=== PATIENT | female | born 1960 | race Caucasian/White ===

== ENCOUNTER 2018-11-10 13:32 | Inpatient (IN) | payer SELFPAY ==
[~2018-11-10] VITALS: Ht 167.6 cm; Wt 94.5 kg
[2018-11-10 15:51] VITALS: BP 162/74
[2018-11-10] MEDS ORDERED: HEPARIN 25,000UTS/500ML PREMIX 500 ML IV PRN ×2 (16:15)
[2018-11-10] MEDS ORDERED: HEPARIN for IV BOLUS 10,000 UNIT/10 ML VIAL. IV PRN (16:15)
--- NOTE | 2018-11-10 16:27 | PDOC ---
Provider Note Provider Note 11/10/2018 1610 AFIB RVR NSTEMI Cardiomyopathy Pneumonia Pt transferred from [facility] with EF at 35-40%. [facility] planned for tomorrow. Pt was seen by cardiology over there, please see attached note copies including consultation. DC cardizem and start on metoprolol for rate control. Start on heparin drip and will reeval need of anticoagulation post cath after findings in LHC is noted. BEA SALAZAR APRN Nov 10, 2018 16:27
[2018-11-10] MEDS: METOPROLOL TART IMMED RELEASE 25 MG TABLET. PO SCH (17:39)
[2018-11-10] MEDS ORDERED: RANI-376 PO (17:56)
[2018-11-10] MEDS ORDERED: ACETAMINOPHEN 325 MG TABLET. PO PRN (18:15)
[2018-11-10] MEDS: IPRATRPIUM/ALBUTEROL 0.5/2.5MG 3 ML NEBU. NEB SCH (19:25)
[2018-11-10 19:30] VITALS: BP 100/71
[2018-11-10] MEDS: LACTOBACILLUS RHAMNOSUS GG 1 CAPSULE. PO SCH (20:17)
[2018-11-10] MEDS ORDERED: cefTRIAXone IV Push 1 GM VIAL. IVP SCH (21:00)
[2018-11-10 23:37] VITALS: BP 116/81
[2018-11-11] VITALS (14 sets, daily range): BP systolic 96–121; BP diastolic 55–81
[2018-11-11] MEDS: METOPROLOL TART IMMED RELEASE 25 MG TABLET. PO SCH ×3 (00:23→12:15)
[2018-11-11 06:24] LABS: BASO # 0.1 x10^3/uL (0.0-0.2); BASO % 1 % (0-3); EOS # 0.1 x10^3/uL (0.0-0.7); EOS % 1 % (0-3); HEMATOCRIT 35.7 % (36.0-47.0); HEMOGLOBIN 11.6 g/dL (12.0-15.5); LYMPH # 1.8 x10^3/uL (1.0-4.8); LYMPH % 17 % (24-48); MEAN CORPUSCULAR HEMOGLOBIN 30 pg (25-35); MEAN CORPUSCULAR HGB CONC 33 g/dL (31-37); MEAN CORPUSCULAR VOLUME 92 fL (79-100); MONO # 0.8 x10^3/uL (0.0-1.1); MONO % 8 % (0-9); NEUT # 7.9 x10^3uL (1.8-7.7); NEUT % 74 % (31-73); PLATELET COUNT 303 x10^3/uL (140-400); RED BLOOD COUNT 3.86 x10^6/uL (3.50-5.40); RED CELL DISTRIBUTION WIDTH 13.8 % (11.5-14.5); WHITE BLOOD COUNT 10.7 x10^3/uL (4.0-11.0)
[2018-11-11 06:46] LABS: ALBUMIN 2.7 g/dL (3.4-5.0); ALBUMIN/GLOBULIN RATIO 0.8 (1.0-1.7); CALCIUM 8.9 mg/dL (8.5-10.1); GFR 56.9; MAGNESIUM 1.9 mg/dL (1.8-2.4); POTASSIUM 3.9 mmol/L (3.5-5.1); TOTAL BILIRUBIN 0.6 mg/dL (0.2-1.0); TOTAL PROTEIN 6.3 g/dL (6.4-8.2)
[2018-11-11] MEDS ORDERED: ASPIRIN 325 MG TABLET PO SCH (08:00)
[2018-11-11] MEDS: IPRATRPIUM/ALBUTEROL 0.5/2.5MG 3 ML NEBU. NEB SCH ×3 (08:12→16:00)
[2018-11-11] MEDS ORDERED: LIDOCAINE 1% Multi-Dose 20 ML VIAL. ONE (08:14)
[2018-11-11] MEDS ORDERED: HEPARIN for ARTERIAL LINE 1,500 ML ONE (08:14)
[2018-11-11] MEDS ORDERED: IOHEXOL 300 MG/ML 100ML VIAL. ONE (08:14)
[2018-11-11] MEDS ORDERED: fentaNYL PF VIAL 100 MCG/2 ML VIAL ONE (08:38)
[2018-11-11] MEDS ORDERED: MIDAZOLAM HCL/PF 2 MG/2 ML VIAL. ONE (08:38)
--- NOTE | 2018-11-11 08:48 | PDOC ---
MODERATE SEDATION ASSESSMENT RISKS/ALTERNATIVES Risks/Alternatives Risks and alternatives of this type of sedation and procedure discussed with: RISK/ALTERNATIVES: Patient H & P ON CHART H & P H & P on chart and reviewed for co-morbid conditions and appropriate labs. H&P ON CHART: Yes STATUS PREG STATUS ASSESSED: Yes MEDS/ALLERGIES REVIEWED Meds/Allergies Reviewed Medications and Allergies including time and route of recently administered narcotics and sedatives. MEDS/ALLERGIES REVIEWED: Yes ASA RATING ASA RATING: II AIRWAY ASSESSMENT Airway Assessment Airway patency, oral function limitations, presence of caps, crowns, dentures, partials, and ability to extend neck assessed. AIRWAY ASSESSMENT: Yes MALLAMPATI SCORE MALLAMPATI SCORE: II PRE-SEDATION ASSESSMENT PRE-SEDATION ASSESSMENT: Yes DANIAL BELTRAN MD Nov 11, 2018 08:48
[2018-11-11] MEDS ORDERED: IOHEXOL 300 MG/ML 100ML VIAL. IART ONE (09:15)
[2018-11-11] MEDS ORDERED: LIDOCAINE 1% Multi-Dose 20 ML VIAL. INJ ONE (09:15)
[2018-11-11] MEDS ORDERED: fentaNYL PF VIAL 100 MCG/2 ML VIAL IV ONE (09:15)
[2018-11-11] MEDS ORDERED: MIDAZOLAM HCL/PF 2 MG/2 ML VIAL. IV ONE (09:15)
[2018-11-11] MEDS ORDERED: CONTRAST GIVEN. MC PRN (09:15)
[2018-11-11] MEDS ORDERED: 0.9 % SODIUM CHLORIDE 10 ML DISP.SYRIN. IV PRN (09:45)
[2018-11-11] MEDS ORDERED: NITROGLYCERIN SUBLINGUAL 0.4 MG BOTTLE OF 25. SL PRN (09:45)
[2018-11-11] MEDS ORDERED: IV NORMAL SALINE 1000ML BAG 1,000 ML IV SCH (10:00)
[2018-11-11] MEDS: LACTOBACILLUS RHAMNOSUS GG 1 CAPSULE. PO SCH (10:31)
[2018-11-11] MEDS ORDERED: LISINOPRIL 10 MG TABLET PO SCH (13:30)
[2018-11-11] MEDS ORDERED: METOPROLOL SUCC 24HR ER 50 MG TAB.ER.24H. PO SCH (13:30)
--- NOTE | 2018-11-11 14:19 | SSS ---
ADMIT DATE: HISTORY OF PRESENT ILLNESS: The patient is a 58-year-old female patient who was admitted with increasing shortness of breath, cough and has been going on for almost 2 weeks. She apparently was seen by her primary care physician, was treated for bronchitis with oral Levaquin, albuterol inhaler as well as Mucinex. She also has completed treatment several days ago. She continued to have shortness of breath with any exertion, even when she walks across the room and she became short of breath. Denied, however, any chest pain. She has not noted to have a rapid heart rate and has no cardiac history. She was seen in the Emergency Room of [facility] on 11/09/2018 and was diagnosed with the atrial fibrillation, rapid ventricular response with a heart rate 153 beats per minute that is irregular without ST segment elevation. Her chest x-ray showed that the heart is borderline enlarged. She has atherosclerotic calcification, some right infrahilar parenchymal airspace opacity suspicious for developing consolidative process. She has pneumonia and a trace right-sided pleural effusion, but no pneumothorax. Cardiac enzyme was slightly elevated. She had an echocardiogram, which showed that her left ventricular size is normal; however, left ventricular systolic function is moderately impaired, ejection fraction 35-40%. She has global hypokinesis and with concentric left ventricular hypertrophy with no significant valvular disease. Her pulmonary artery pressure was estimated at 54 mm and the ascending aorta is mildly dilated 3.6 cm, and therefore, a decision was made to transfer her to [facility] for cardiac catheterization. In fact, she underwent left heart catheterization and showed that she has no significant obstructive coronary artery disease, and Dr. Jonas Gibson recommended the patient can be discharged on a beta edinson, ESTEFANY inhibitor and blood thinner. PAST MEDICAL HISTORY: Significant for nephrolithiasis, had 3 stones that were removed by cystoscopy and retrograde pyelography and laser lithotripsy. PAST SURGICAL HISTORY: Significant for 3 sections and recent cystoscopy and retrograde pyelography. ALLERGIES: She has no known drug allergies. She was transferred to [facility]. She was on diltiazem 240 mg once a day, ceftriaxone 1 gram as well as she was also on heparin drip. FAMILY HISTORY: She has 4 sisters and 2 brothers. Her mother is still alive at the age of 81 and has diabetes, CVA and coronary artery bypass graft surgery. His father is still alive at age of 86 and apparently has a history of meningitis and currently demented. One of her sisters has diabetes. SOCIAL HISTORY: She is , has 2 sons and 1 daughter. She quit smoking about 5 years ago. She does not drink alcohol or use recreational drugs. 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 PHYSICAL EXAMINATION: GENERAL: When I examined her this afternoon, she looked well and was clearly in no apparent respiratory distress. No pallor, jaundice, cyanosis or thyromegaly. No jugular venous distension. No lower limb edema. VITAL SIGNS: Her heart rate was 100, blood pressure was 108/64, temperature was 98, respiratory rate was 18 and oxygen saturation was 96% on room air. HEAD, EYES, EARS, NOSE AND THROAT: Showed normocephalic, atraumatic. NECK: Supple. HEART: Showed normal first and second heart sounds with no gallop, rub or murmur. CHEST: Clear to auscultation. No crepitation or rhonchi. ABDOMEN: Distended, soft, nontender. NEUROLOGIC: She was awake, alert, responding appropriately. All cranial nerves intact. She moves extremities without difficulty. Her lab work showed a white cell count 10,700, hemoglobin 11, hematocrit 36, MCV 92, and platelet count 303,000, with normal manual differential. Her serum sodium was 143, potassium 3.9, chloride 106, bicarbonate 25, anion gap of 12, BUN is 17, creatinine 1, estimated GFR was 56 mL per minute. Her glucose 123, calcium was 8.9, magnesium was 1.9. Total bilirubin, AST, ALT, alkaline phosphatase were normal. Total protein was 6.3, albumin 2.7. The patient will be discharged home to continue on metoprolol, ESTEFANY inhibitor and blood thinner dictated by the cardiology team. The patient was advised she may return back to work on 11/23/2018. KEL KIMBROUGH MD DR: JODIE/marnie JOB#: [id number] / [id number]
--- NOTE | 2018-11-11 15:36 | PDOC ---
CARDIO Progress Notes Date and Time Date of Service 11/11/18 Time of Evaluation 1210 Subjective Subjective: No Chest Pain, No shortness of breath, No Palpitations Vitals Vitals Vital Signs Date Time Temp Pulse Resp B/P (MAP) Pulse Ox O2 Delivery O2 Flow Rate FiO2 11/11/18 15:20 97.8 70 28 97/67 (77) 92 Room Air 97.8 11/11/18 14:00 1.0 Weight Weight [ ] Input and Output Intake and Output Intake and Output 11/11/18 07:00 Intake Total 500 ml Balance 500 ml Intake Oral 500 ml # Voids 3 Laboratory Labs Laboratory Tests Test 11/10/18 22:45 11/11/18 05:55 Heparin Anti-Xa Act, Unfractionated < 0.10 IU/mL (0.30-0.70) 0.33 IU/mL (0.30-0.70) White Blood Count 10.7 x10^3/uL (4.0-11.0) Red Blood Count 3.86 x10^6/uL (3.50-5.40) Hemoglobin 11.6 g/dL (12.0-15.5) Hematocrit 35.7 % (36.0-47.0) Mean Corpuscular Volume 92 fL (79-100) Mean Corpuscular Hemoglobin 30 pg (25-35) Mean Corpuscular Hemoglobin Concent 33 g/dL (31-37) Red Cell Distribution Width 13.8 % (11.5-14.5) Platelet Count 303 x10^3/uL (140-400) Neutrophils (%) (Auto) 74 % (31-73) Lymphocytes (%) (Auto) 17 % (24-48) Monocytes (%) (Auto) 8 % (0-9) Eosinophils (%) (Auto) 1 % (0-3) Basophils (%) (Auto) 1 % (0-3) Neutrophils # (Auto) 7.9 x10^3uL (1.8-7.7) Lymphocytes # (Auto) 1.8 x10^3/uL (1.0-4.8) Monocytes # (Auto) 0.8 x10^3/uL (0.0-1.1) Eosinophils # (Auto) 0.1 x10^3/uL (0.0-0.7) Basophils # (Auto) 0.1 x10^3/uL (0.0-0.2) Sodium Level 143 mmol/L (136-145) Potassium Level 3.9 mmol/L (3.5-5.1) Chloride Level 106 mmol/L (98-107) Carbon Dioxide Level 25 mmol/L (21-32) Anion Gap 12 (6-14) Blood Urea Nitrogen 17 mg/dL (7-20) Creatinine 1.0 mg/dL (0.6-1.0) Estimated GFR (Cockcroft-Gault) 56.9 BUN/Creatinine Ratio 17 (6-20) Glucose Level 123 mg/dL (70-99) Calcium Level 8.9 mg/dL (8.5-10.1) Magnesium Level 1.9 mg/dL (1.8-2.4) Total Bilirubin 0.6 mg/dL (0.2-1.0) Aspartate Amino Transf (AST/SGOT) 29 U/L (15-37) Alanine Aminotransferase (ALT/SGPT) 35 U/L (14-59) Alkaline Phosphatase 91 U/L (46-116) Total Protein 6.3 g/dL (6.4-8.2) Albumin 2.7 g/dL (3.4-5.0) Albumin/Globulin Ratio 0.8 (1.0-1.7) Physical Exam HEENT: Neck Supple W Full Motion Chest: Symmetric Heart: S1S2, irregularly irregular Abdomen: Soft N/T Extremities: No Edema, Other (right groin arteriotomy site soft, clean and dry. No hematoma present) Assessment Assessment 1. AFIB, new onset. rate now controlled. 2. NICM; LVEF 35- 40%. Cath without obstructive disease 3. PNA; as per PCP Recommendations Stop Cardizem given NICM. Rate control with metoprolol- will do tartrate for affordability Add low-dose ACEi Eliquis for stroke prophylaxis. 6 weeks of samples provided to the patient SS provided information for insurance coverage Consider outpatient CV if patient remains in AFIB Reassess LVEF on an outpatient basis Follow up in our office with Dr. Ortiz in month. RAZA BIRMINGHAM APRN Nov 11, 2018 15:36
--- NOTE | 2018-11-11 15:37 | CARD ---
MR#: [id number] Date of Study: 11/11/2018 Ordering Physician: BEA SALAZAR, Referring Physician: Pollo ASHLEY: LETICIA DE SOUZA RTR APPROVED REPORT Procedures Left heart catheterization Selective coronary angiogram Left ventriculogram The patient's a 58-year-old female with new onset of heart failure. Echocardiogram showed moderately decreased LV function. Patient had mildly atypical chest pain. In this situation cardiac catheterizat ion was recommended. Risks and benefits were discussed with the patient. The patient agreed to procee d. After informed consent was obtained the patient was brought to the heart catheterization lab. The are a of the right femoral artery was prepared the usual manner with Betadine, sterile draping and local anesthetic. An 18-gauge needle was used to enter the right femoral artery, a wire placed the 6 Tamazight sheath placed over the wire. Using a J-wire, a 6 Tamazight JL4 diagnostic catheter was advanced to the ascending aorta and used to engage the left coronary system with sequential injections in various vi ews obtained. A 6 Tamazight JR4 catheter with then used to engage the right coronary artery system. Sequ ential injections in various views were obtained. A pigtail catheter was advanced to the ascending ao rta and then the left ventricle. A 30 ARIZMENDI left ventriculogram was performed. Pullback pressures were measured. The catheter was removed the patient. Injection the sheath showed normal placement. The eath was removed and sealed with an Angio-Seal product. The patient was moved to the holding area. Findings. Hemodynamics. LV 106/15, 18. Aortic root 104/80. Coronaries. Left main. The left main was a moderate size vessel. It had a smooth proximal 20-25% lesion. Left circumflex. The left circumflex is a moderate size vessel. It had no lesions. Right coronary artery. The right coronary was a large dominant vessel. It had no lesions. Left ventriculogram. The left ventricle showed moderately decreased LV function na a global basis with ejection fraction e stimated at 35%. <Conclusion> Mild single-vessel coronary disease. Nonischemic cardiomyopathy with an ejection fraction of 35%. Signed by : Waqas Jung MD Electronically Approved : 11/11/2018 15:37:00
[2018-11-11] MEDS ORDERED: METO50TA6 PO (15:45)
[2018-11-11] MEDS ORDERED: LISI10TA2 PO (15:45)
[2018-11-11] MEDS ORDERED: APIX5TAB PO (15:45)
[2018-11-11] MEDS ORDERED: ANTI-COAG MONITOR BY PHARMACY. MC PRN (15:45)
[2018-11-11] MEDS ORDERED: APIXABAN 5 MG TABLET. PO SCH (16:30)
--- NOTE | 2018-11-11 17:55 | NUR ---
Discharge Note: MARIO ALBERTO DUMAS Discharge instructions and discharge home medications reviewed with Patient and a copy given. All questions have been answered and understanding verbalized. The following instructions and handouts were given: Fellow up with Dr. Ortiz in one month. Discontinued iv lines: light discoloration in ac darby and left wrist. Patient discharged to with via
[2018-11-11] MEDS ORDERED: METOPROLOL TART IMMED RELEASE 50 MG TABLET. PO SCH (21:00)
== END 2018-11-11 17:35 | disposition home or self-care (01) | DRG 280 ==
LOC: 2 SOUTH 15:37
PROVIDERS: ADMIT Internal Medicine; ATTEND Internal Medicine
PROC: 4A023N7 Measurement of Cardiac Sampling and Pressure, Left Heart, Percutaneous Approach (ICD-10-PCS; principal; 2018-11-11)
PROC: B2151ZZ Fluoroscopy of Left Heart using Low Osmolar Contrast (ICD-10-PCS; 2018-11-11)
PROC: B2111ZZ Fluoroscopy of Multiple Coronary Arteries using Low Osmolar Contrast (ICD-10-PCS; 2018-11-11)
DX: I21.4 Non-ST elevation (NSTEMI) myocardial infarction (principal); J18.9 Pneumonia, unspecified organism; I42.9 Cardiomyopathy, unspecified; I48.91 Unspecified atrial fibrillation; J40 Bronchitis, not specified as acute or chronic; Z82.3 Family history of stroke; Z83.3 Family history of diabetes mellitus; Z87.442 Personal history of urinary calculi; Z87.891 Personal history of nicotine dependence; Z79.899 Other long term (current) drug therapy
CPT/HCPCS: 36415; 80053; 83735; 85025; 85520; 93458; 94640; 94760; 99152; 99153; C1760; C1769; C1892; G0269; J0696; J1644; J2250; J3010; J7030; J7620; Q9967; C1771

== ENCOUNTER 2018-11-20 17:36 | Inpatient (IN) | payer SELFPAY ==
[~2018-11-20] VITALS: Ht 167.6 cm; Wt 87.2 kg
[~2018-11-20 17:36] MED LIST: APIX5TAB PO; LISI10TA2 PO; METO50TA6 PO; RANI-376 PO
[2018-11-20] MEDS ORDERED: IPRATRPIUM/ALBUTEROL 0.5/2.5MG 3 ML NEBU. NEB ONE (19:30)
[2018-11-20 19:44] LABS: BASO # 0.1 x10^3/uL (0.0-0.2); BASO % 1 % (0-3); EOS # 0.1 x10^3/uL (0.0-0.7); EOS % 1 % (0-3); HEMATOCRIT 40.2 % (36.0-47.0); LYMPH # 2.1 x10^3/uL (1.0-4.8); LYMPH % 30 % (24-48); MEAN CORPUSCULAR HEMOGLOBIN 30 pg (25-35); MEAN CORPUSCULAR HGB CONC 32 g/dL (31-37); MEAN CORPUSCULAR VOLUME 92 fL (79-100); MONO # 0.6 x10^3/uL (0.0-1.1); MONO % 8 % (0-9); NEUT # 4.3 x10^3uL (1.8-7.7); NEUT % 60 % (31-73); PLATELET COUNT 315 x10^3/uL (140-400); RED BLOOD COUNT 4.39 x10^6/uL (3.50-5.40); RED CELL DISTRIBUTION WIDTH 13.8 % (11.5-14.5); WHITE BLOOD COUNT 7.1 x10^3/uL (4.0-11.0)
[2018-11-20 19:57] LABS: CREATININE 0.9 mg/dL (0.6-1.0); GFR 64.3; POTASSIUM 4.5 mmol/L (3.5-5.1)
[2018-11-20 20:03] LABS: ALBUMIN 2.9 g/dL (3.4-5.0); ALBUMIN/GLOBULIN RATIO 0.8 (1.0-1.7); TOTAL BILIRUBIN 0.7 mg/dL (0.2-1.0); TOTAL PROTEIN 6.5 g/dL (6.4-8.2)
--- NOTE | 2018-11-20 21:10 | PHYS DOC ---
Past Medical History Past Medical History: A-Fib, Bronchitis, Hypertension, Kidney Infection, Kidney Stone Past Surgical History: Alcohol Use: Occasionally Drug Use: None Adult General Chief Complaint Chief Complaint: SHORTNESS OF BREATH HPI HPI Patient is a 58 year old female who presents to the emergency room with complaints of shortness of breath for the last month. Patient states she was admitted on November 10 and discharged on November 11 after being diagnosed with pneumonia and atrial fibrillation. She states that time she was also diagnosed with hypertension and bronchitis she was started on eloquence. Patient denies any fever, chest pain, dizziness, weakness, abdominal pain, nausea, vomiting, diarrhea, sore throat, or ear pain. She states that her shortness of breath increases with activity, she denies any swelling in her extremities. Patient currently denies any pain. Review of Systems Review of Systems Constitutional: Denies fever or chills [] Eyes: Denies change in visual acuity, redness, or eye pain [] HENT: Denies nasal congestion or sore throat [] Respiratory: See HPI Cardiovascular: No additional information not addressed in HPI [] GI: Denies abdominal pain, nausea, vomiting, or diarrhea [] : Denies dysuria or hematuria [] Musculoskeletal: Denies back pain or joint pain [] Integument: Denies rash or skin lesions [] Neurologic: Denies headache, focal weakness or sensory changes [] Complete systems were reviewed and found to be within normal limits, except as documented in this note. Current Medications Current Medications Current Medications Medications (Trade) Dose Ordered Sig/Cammy Start Time Stop Time Status Last Admin Dose Admin Albuterol/ Ipratropium (Duoneb) 3 ml 1X ONCE 11/20/18 19:30 11/20/18 19:31 DC 11/20/18 20:15 3 ML Allergies Allergies Allergies Coded Allergies Type Severity Reaction Last Updated Verified No Known Drug Allergies 11/10/18 No Physical Exam Physical Exam Constitutional: Well developed, well nourished, no acute distress, non-toxic appearance. [] HENT: Normocephalic, atraumatic, bilateral external ears normal, oropharynx moist, nose normal. [] Eyes: conjunctiva normal, no discharge. [] Neck: Normal range of motion, no stridor. [] Cardiovascular:Heart rate regular rhythm, no murmur [] Lungs & Thorax: Bilateral breath sounds expiratory wheezes, diminished in bases; labored Skin: Warm, dry, no erythema, no rash. [] Extremities: No cyanosis, ROM intact, no edema, no deformities. Neurologic: Alert and oriented X 3, no focal deficits noted. [] Psychologic: Affect normal, judgement normal, mood normal. [] Current Patient Data Vital Signs Lab Values Laboratory Tests Test 11/20/18 19:20 White Blood Count 7.1 x10^3/uL (4.0-11.0) Red Blood Count 4.39 x10^6/uL (3.50-5.40) Hemoglobin 13.0 g/dL (12.0-15.5) Hematocrit 40.2 % (36.0-47.0) Mean Corpuscular Volume 92 fL (79-100) Mean Corpuscular Hemoglobin 30 pg (25-35) Mean Corpuscular Hemoglobin Concent 32 g/dL (31-37) Red Cell Distribution Width 13.8 % (11.5-14.5) Platelet Count 315 x10^3/uL (140-400) Neutrophils (%) (Auto) 60 % (31-73) Lymphocytes (%) (Auto) 30 % (24-48) Monocytes (%) (Auto) 8 % (0-9) Eosinophils (%) (Auto) 1 % (0-3) Basophils (%) (Auto) 1 % (0-3) Neutrophils # (Auto) 4.3 x10^3uL (1.8-7.7) Lymphocytes # (Auto) 2.1 x10^3/uL (1.0-4.8) Monocytes # (Auto) 0.6 x10^3/uL (0.0-1.1) Eosinophils # (Auto) 0.1 x10^3/uL (0.0-0.7) Basophils # (Auto) 0.1 x10^3/uL (0.0-0.2) D-Dimer (Shelley) 0.49 ug/mlFEU (0.00-0.50) Sodium Level 144 mmol/L (136-145) Potassium Level 4.5 mmol/L (3.5-5.1) Chloride Level 106 mmol/L (98-107) Carbon Dioxide Level 28 mmol/L (21-32) Anion Gap 10 (6-14) Blood Urea Nitrogen 21 mg/dL (7-20) H Creatinine 0.9 mg/dL (0.6-1.0) Estimated GFR (Cockcroft-Gault) 64.3 BUN/Creatinine Ratio 23 (6-20) H Glucose Level 101 mg/dL (70-99) H Calcium Level 9.0 mg/dL (8.5-10.1) Total Bilirubin 0.7 mg/dL (0.2-1.0) Aspartate Amino Transferase (AST) 31 U/L (15-37) Alanine Aminotransferase (ALT) 43 U/L (14-59) Alkaline Phosphatase 88 U/L (46-116) Troponin I Quantitative 0.025 ng/mL (0.000-0.055) GM-Gph-Q-Type Natriuretic Peptide 7527 pg/mL (0-124) H Total Protein 6.5 g/dL (6.4-8.2) Albumin 2.9 g/dL (3.4-5.0) L Albumin/Globulin Ratio 0.8 (1.0-1.7) L Laboratory Tests 11/20/18 19:20 Laboratory Tests 11/20/18 19:20 EKG EKG 1910 afib no stemi rate [address] Fajardo[] Radiology/Procedures Radiology/Procedures PROCEDURE: CHEST PA & LATERAL CHEST PA LATERAL CLINICAL INDICATION: SOA, COUGH X1 MONTH. HX OF BRONCHITIS, A-FIB COMPARISON: None FINDINGS: Heart is mildly enlarged in size. Central bilateral peribronchial wall thickening is seen. Diffuse interstitial opacities. No focal consolidation. No pneumothorax or pleural effusion. Visualized bony thorax is within normal limits. IMPRESSION: Mild cardiomegaly. Bronchitis. Superimposed atypical/viral infection or interstitial pulmonary edema not ruled out.[] Course & Med Decision Making Course & Med Decision Making Pertinent Labs and Imaging studies reviewed. (See chart for details) dx: shortness of breath, atrial fibrillation, CHF exacerbation 2051- admitted patient to Dr. Richardson [] Dragon Disclaimer Dragon Disclaimer This electronic medical record was generated, in whole or in part, using a voice recognition dictation system. Departure Departure Impression: Primary Impression: Afib Additional Impressions: Shortness of breath CHF (congestive heart failure) Disposition: ADMITTED INPATIENT Admitting Physician: Keith Hale Condition: STABLE Referrals: SHEREE JAMESON MD (PCP) Scripts Furosemide (LASIX) 40 Mg Tablet 1 TAB PO DAILY for 30, #90 TAB 1 Refill Prov: MIRA CASTANON MD 11/22/18 Cetirizine Hcl (CETIRIZINE HCL) 10 Mg Tablet 10 MG PO DAILY for uri MDD 1 for 7 Days, #7 TAB Prov: MIRA CASTANON MD 11/22/18 Fluticasone Propionate (FLUTICASONE PROPIONATE NASAL SPRAY) 16 Gm [place].susp 2 SPRAY NS DAILY for uri MDD 1, #1 SPRAY Prov: MIRA CASTANON MD 11/22/18 Metoprolol Tartrate (METOPROLOL TARTRATE) 50 Mg Tablet 100 MG PO BID for a fib MDD 1, #60 TAB Prov: MIRA CASTANON MD 11/22/18 Doxycycline Hyclate (DOXYCYCLINE HYCLATE) 100 Mg Tablet 100 MG PO BID for uri MDD 1 for 7 Days, #14 TAB Prov: MIRA CASTANON MD 11/22/18 Problem Qualifiers Primary Impression: Afib Atrial fibrillation type: unspecified Qualified Codes: I48.91 - Unspecified atrial fibrillation Additional Impressions: CHF (congestive heart failure) Heart failure type: unspecified Heart failure chronicity: unspecified Qualified Codes: I50.9 - Heart failure, unspecified RADHA AYALA APRN Nov 20, 2018 21:10
[2018-11-20 22:00] VITALS: BP 144/100
[2018-11-20] MEDS ORDERED: APIX5TAB PO (22:23)
[2018-11-20] MEDS ORDERED: VENTOLIN HFA18 GM INH (22:23)
[2018-11-20] MEDS ORDERED: METO50TA6 PO (22:23)
[2018-11-20] MEDS ORDERED: ACETAMINOPHEN 325 MG TABLET. PO PRN (22:45)
[2018-11-20] MEDS ORDERED: diphenhydrAMINE HCL 25 MG CAPSULE PO PRN (22:45)
[2018-11-20] MEDS: METOPROLOL TART IMMED RELEASE 50 MG TABLET. PO SCH (23:18)
[2018-11-20] MEDS: APIXABAN 5 MG TABLET. PO SCH (23:19)
[2018-11-20] MEDS: LISINOPRIL 10 MG TABLET PO SCH (23:19)
[2018-11-21] VITALS (7 sets, daily range): BP systolic 94–133; BP diastolic 48–82
--- NOTE | 2018-11-21 06:41 | RAD ---
CHEST PA LATERAL CLINICAL INDICATION: SOA, COUGH X1 MONTH. HX OF BRONCHITIS, A-FIB COMPARISON: None FINDINGS: Heart is mildly enlarged in size. Central bilateral peribronchial wall thickening is seen. Diffuse interstitial opacities. No focal consolidation. No pneumothorax or pleural effusion. Visualized bony thorax is within normal limits. IMPRESSION: Mild cardiomegaly. Bronchitis. Superimposed atypical/viral infection or interstitial pulmonary edema not ruled out. Electronically signed by: Arnel Maurer DO (11/21/2018 6:37 AM) [facility]
[2018-11-21] MEDS: ANTI-COAG MONITOR BY PHARMACY. MC PRN (08:29)
[2018-11-21] MEDS ORDERED: guaiFENesin DM 200MG/20MG 10 ML SYRUP PO PRN (08:30)
[2018-11-21] MEDS ORDERED: ONDANSETRON PF 4 MG/2 ML VIAL. IV PRN (08:30)
[2018-11-21] MEDS ORDERED: ONDANSETRON ODT 4 MG TAB.RAPDIS. PO PRN (08:30)
[2018-11-21] MEDS: APIXABAN 5 MG TABLET. PO SCH ×2 (08:43→20:48)
[2018-11-21] MEDS: METOPROLOL TART IMMED RELEASE 50 MG TABLET. PO SCH ×3 (08:44→20:48)
[2018-11-21] MEDS ORDERED: FAMOTIDINE 20 MG TABLET. PO PRN (09:00)
[2018-11-21] MEDS ORDERED: FUROSEMIDE 40 MG/4 ML VIAL. IVP ONE (10:15)
--- NOTE | 2018-11-21 10:19 | PDOC1 ---
History and Physical Date of Admission Date of Admission DATE: 11/21/18 TIME: 10:13 Identification/Chief Complaint Chief Complaint S OA on exertion and short distances Source Source: Caregiver, Chart review, Patient History of Present Illness History of Present Illness 58-year-old obese female BMI 32, recently diagnosed with A. fib 2018 was put on Eliquis and beta edinson. Comes in because of persistent S OA 10 feet x 1 month now. She actually had already an [facility] sounds like and an echocardiogram recent by Dr. Ortiz and EF she relays to me is 35% BNP is 7500 with pulmonary edema on chest x-ray. She also was recently treated that for URI symptoms/acute bronchitis/pneumonia by PCP, completed 10 day course of Levaquin, no steroids. Still having some nasal congestion and acute bronchitis symptoms. Hard to see for acute infiltrate but could be atypical viral infection on chest x-ray - 2 views. 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 Can note some mild leg edema but none currently Blood pressure okay ROS positive for postnasal drip and sinusitis symptoms Past Medical History Cardiovascular: AFIB, HTN Past Surgical History Past Surgical History: No pertinent history Family History Family History: High Cholestrol, Hypertension Social History Smoke: Quit ALCOHOL: none Drugs: None Current Medications Current Medications Current Medications Albuterol/ Ipratropium (Duoneb) 3 ml 1X ONCE NEB Last administered on at 20:15; Start 11/20/18 at 19:30; Stop 11/20/18 at 19:31; Status DC Apixaban (Eliquis) 5 mg BID PO Last administered on 11/21/18at 08:43; Start at 23:00 Lisinopril (Prinivil) 10 mg HS PO Last administered on 11/20/18at 23:19; Start 11/20/18 at 23:00 Metoprolol Tartrate (Lopressor) 50 mg TID PO Last administered on 11/21/18at 08: 44; Start 11/20/18 at 23:00 Famotidine (Pepcid) 20 mg PRN DAILY PRN PO HEARTBURN / GAS; Start 11/21/18 at 09:00 Diphenhydramine HCl (Benadryl) 25 mg PRN QHS PRN PO INSOMNIA 1ST CHOICE Last administered on 11/20/18at 23:19; Start 11/20/18 at 22:45 Acetaminophen (Tylenol) 650 mg PRN Q6HRS PRN PO MILD PAIN Last administered on 11/20/18at 23:19; Start 11/20/18 at 22:45 Info (Anti-Coagulation Monitoring By Pharmacy) 1 each PRN DAILY PRN MC SEE COMMENTS Last administered on 11/21/18at 08:29; Start 11/21/18 at 08:30 Albuterol/ Ipratropium (Duoneb) 3 ml RTQID NEB ; Start 11/21/18 at 09:00 Guaifenesin (Robitussin Dm) 10 ml PRN Q6HRS PRN PO COUGH; Start 11/21/18 at 08: 30 Ondansetron HCl (Zofran) 4 mg PRN Q6HRS PRN IV NAUSEA/VOMITING; Start 11/21/18 at 08:30 Ondansetron HCl (Zofran Odt) 4 mg PRN Q6HRS PRN PO NAUSEA/VOMITING; Start 11/21 at 08:30 Active Scripts Active Lisinopril 10 Mg Tablet 10 Mg PO DAILY 30 Days Reported Metoprolol Tartrate 50 Mg Tablet 1 Tab PO TID Eliquis (Apixaban) 5 Mg Tablet 5 Mg PO BID Ventolin Hfa Inhaler (Albuterol Sulfate) 18 Gm Hfa.aer.ad 2 Puff INH Q4HRS PRN Zantac (Ranitidine Hcl) 150 Mg Tablet 150 Mg PO DAILY Allergies Allergies: Coded Allergies: No Known Drug Allergies (Unverified , 11/10/18) ROS Review of System SOA, negative chest pain, negative fevers Positive for postnasal drip, negative for abdominal symptoms, the rest of ROS 14 point negative Physical Exam General: Alert, Oriented X3, Cooperative, No acute distress HEENT: Atraumatic, PERRLA Lungs: Normal air movement, Other (symmetric chest expansion, diminished or decreased breath sounds on the bases, no wheezing) Heart: S1S2, RRR, no thrills, no rubs, no gallops, no murmurs Cardiovascular: S1, S2 Breasts: Normal, Rt breast nml w/o mass, Lt breast nml w/o mass, Nipples normal Abdomen: Normal bowel sounds, Soft, No tenderness, No hepatosplenomegaly, No masses Rectal Exam: not examined PELVIC: Nml ext genitalia Extremities: No clubbing, No cyanosis, No edema, Normal pulses, No tenderness/ swelling Skin: No rashes, No breakdown, No significant lesion Neuro: Normal gait, Normal speech, Strength at 5/5 X4 ext, Normal tone, Sensation intact, Cranial nerves 3-12 NL, Reflexes 2+ Psych/Mental Status: Mental status NL, Mood NL Vitals Vitals Vital Signs Date Time Temp Pulse Resp B/P (MAP) Pulse Ox O2 Delivery O2 Flow Rate FiO2 11/21/18 08:44 100 122/82 11/21/18 07:00 97.5 18 93 Room Air 97.5 Labs Labs Laboratory Tests Test 11/20/18 19:20 White Blood Count 7.1 x10^3/uL (4.0-11.0) Red Blood Count 4.39 x10^6/uL (3.50-5.40) Hemoglobin 13.0 g/dL (12.0-15.5) Hematocrit 40.2 % (36.0-47.0) Mean Corpuscular Volume 92 fL (79-100) Mean Corpuscular Hemoglobin 30 pg (25-35) Mean Corpuscular Hemoglobin Concent 32 g/dL (31-37) Red Cell Distribution Width 13.8 % (11.5-14.5) Platelet Count 315 x10^3/uL (140-400) Neutrophils (%) (Auto) 60 % (31-73) Lymphocytes (%) (Auto) 30 % (24-48) Monocytes (%) (Auto) 8 % (0-9) Eosinophils (%) (Auto) 1 % (0-3) Basophils (%) (Auto) 1 % (0-3) Neutrophils # (Auto) 4.3 x10^3uL (1.8-7.7) Lymphocytes # (Auto) 2.1 x10^3/uL (1.0-4.8) Monocytes # (Auto) 0.6 x10^3/uL (0.0-1.1) Eosinophils # (Auto) 0.1 x10^3/uL (0.0-0.7) Basophils # (Auto) 0.1 x10^3/uL (0.0-0.2) D-Dimer (Shelley) 0.49 ug/mlFEU (0.00-0.50) Sodium Level 144 mmol/L (136-145) Potassium Level 4.5 mmol/L (3.5-5.1) Chloride Level 106 mmol/L (98-107) Carbon Dioxide Level 28 mmol/L (21-32) Anion Gap 10 (6-14) Blood Urea Nitrogen 21 mg/dL (7-20) Creatinine 0.9 mg/dL (0.6-1.0) Estimated GFR (Cockcroft-Gault) 64.3 BUN/Creatinine Ratio 23 (6-20) Glucose Level 101 mg/dL (70-99) Calcium Level 9.0 mg/dL (8.5-10.1) Total Bilirubin 0.7 mg/dL (0.2-1.0) Aspartate Amino Transf (AST/SGOT) 31 U/L (15-37) Alanine Aminotransferase (ALT/SGPT) 43 U/L (14-59) Alkaline Phosphatase 88 U/L (46-116) Troponin I Quantitative 0.025 ng/mL (0.000-0.055) EQ-Mcn-B-Type Natriuretic Peptide 7527 pg/mL (0-124) Total Protein 6.5 g/dL (6.4-8.2) Albumin 2.9 g/dL (3.4-5.0) Albumin/Globulin Ratio 0.8 (1.0-1.7) Laboratory Tests Test 11/20/18 19:20 White Blood Count 7.1 x10^3/uL (4.0-11.0) Red Blood Count 4.39 x10^6/uL (3.50-5.40) Hemoglobin 13.0 g/dL (12.0-15.5) Hematocrit 40.2 % (36.0-47.0) Mean Corpuscular Volume 92 fL (79-100) Mean Corpuscular Hemoglobin 30 pg (25-35) Mean Corpuscular Hemoglobin Concent 32 g/dL (31-37) Red Cell Distribution Width 13.8 % (11.5-14.5) Platelet Count 315 x10^3/uL (140-400) Neutrophils (%) (Auto) 60 % (31-73) Lymphocytes (%) (Auto) 30 % (24-48) Monocytes (%) (Auto) 8 % (0-9) Eosinophils (%) (Auto) 1 % (0-3) Basophils (%) (Auto) 1 % (0-3) Neutrophils # (Auto) 4.3 x10^3uL (1.8-7.7) Lymphocytes # (Auto) 2.1 x10^3/uL (1.0-4.8) Monocytes # (Auto) 0.6 x10^3/uL (0.0-1.1) Eosinophils # (Auto) 0.1 x10^3/uL (0.0-0.7) Basophils # (Auto) 0.1 x10^3/uL (0.0-0.2) D-Dimer (Shelley) 0.49 ug/mlFEU (0.00-0.50) Sodium Level 144 mmol/L (136-145) Potassium Level 4.5 mmol/L (3.5-5.1) Chloride Level 106 mmol/L (98-107) Carbon Dioxide Level 28 mmol/L (21-32) Anion Gap 10 (6-14) Blood Urea Nitrogen 21 mg/dL (7-20) Creatinine 0.9 mg/dL (0.6-1.0) Estimated GFR (Cockcroft-Gault) 64.3 BUN/Creatinine Ratio 23 (6-20) Glucose Level 101 mg/dL (70-99) Calcium Level 9.0 mg/dL (8.5-10.1) Total Bilirubin 0.7 mg/dL (0.2-1.0) Aspartate Amino Transf (AST/SGOT) 31 U/L (15-37) Alanine Aminotransferase (ALT/SGPT) 43 U/L (14-59) Alkaline Phosphatase 88 U/L (46-116) Troponin I Quantitative 0.025 ng/mL (0.000-0.055) CW-Pzr-I-Type Natriuretic Peptide 7527 pg/mL (0-124) Total Protein 6.5 g/dL (6.4-8.2) Albumin 2.9 g/dL (3.4-5.0) Albumin/Globulin Ratio 0.8 (1.0-1.7) VTE Prophylaxis Ordered VTE Prophylaxis Devices: Yes VTE Pharmacological Prophylaxi: Yes Assessment/Plan Assessment/Plan Cardiomyopathy, nonischemic, EF 35% recent echo CHF, Systolic Acute bronchitis, recently treated pneumonia-completed 10 day course Levaquin Ex-smoker quit many years ago Obesity BMI 32 Postnasal drip Sinusitis Plan: Admit 2 mN Lasix 401 over then we'll defer further cardiac meds to cardiology Cards consulted I reconciled home meds incluiding BB and saundra TSH - most likely have been checked already in the past admits Start H1 antagonist for post nasal drip and sinus sxs Some low dose by mouth prednisone Did offer doxycycline-she seems to be wanting to be treated for persistent acute bronchitis NEbs etc supportive FULL CODE MIRA CASTANON MD Nov 21, 2018 10:19
[2018-11-21] MEDS ORDERED: predniSONE 20 MG TABLET PO ONE (10:30)
--- NOTE | 2018-11-21 11:21 | PDOC ---
CARDIOLOGY PROGRESS NOTE SUBJECTIVE: Recently discharged from hospital, comes back with soa. Cath last week w/o significant disease. EF 35% No insurance, sent out on b-edinson, eliquis samples and lisinopril In er noted to have edema and soa and admitted. OBJECTIVE: Vital SIgns: Vital Signs Date Time Temp Pulse Resp B/P (MAP) Pulse Ox O2 Delivery O2 Flow Rate FiO2 11/21/18 08:44 100 122/82 11/21/18 07:00 97.5 18 93 Room Air 97.5 I & O Intake and Output 11/21/18 07:00 Intake Total 100 ml Output Total 160 ml Balance -60 ml Intake Oral 100 ml Output Urine Total 160 ml Objective: GEN.: No apparent distress. Alert and oriented. HEENT: Head is normocephalic, atraumatic NECK: Supple. LUNGS: Decreased breath sounds. HEART: Irr irr ABDOMEN: Soft, nontender. Positive bowel sounds. EXTREMITIES: Trace edema NEUROLOGIC: Normal speech, normal tone PSYCHIATRIC: Normal affect, normal mood. SKIN: No ulcerations CURRENT MEDICATIONS: Current Medications Medications (Trade) Dose Ordered Sig/Cammy Start Time Stop Time Status Last Admin Dose Admin Acetaminophen (Tylenol) 650 mg PRN Q6HRS PRN 11/20/18 22:45 11/20/18 23:19 650 MG Albuterol/ Ipratropium (Duoneb) 3 ml RTQID 11/21/18 09:00 Apixaban (Eliquis) 5 mg BID 11/20/18 23:00 11/21/18 08:43 5 MG Cetirizine HCl (ZyrTEC) 10 mg DAILY 11/21/18 10:15 Diphenhydramine HCl (Benadryl) 25 mg PRN QHS PRN 11/20/18 22:45 11/20/18 23:19 25 MG Doxycycline Hyclate (Vibra-Tab) 100 mg BID 11/21/18 10:30 Famotidine (Pepcid) 20 mg PRN DAILY PRN 11/21/18 09:00 Fluticasone Propionate (Flonase) 2 spray DAILY 11/22/18 09:00 Furosemide (Lasix) 40 mg 1X ONCE 11/21/18 10:15 11/21/18 10:24 DC Guaifenesin (Mucinex) 600 mg BID 11/21/18 21:00 Guaifenesin (Robitussin Dm) 10 ml PRN Q6HRS PRN 11/21/18 08:30 Info (Anti-Coagulation Monitoring By Pharmacy) 1 each PRN DAILY PRN 11/21/18 08:30 11/21/18 08:29 1 EACH Lisinopril (Prinivil) 10 mg HS 11/20/18 23:00 11/20/18 23:19 10 MG Metoprolol Tartrate (Lopressor) 50 mg TID 11/20/18 23:00 11/21/18 08:44 50 MG Ondansetron HCl (Zofran Odt) 4 mg PRN Q6HRS PRN 11/21/18 08:30 Ondansetron HCl (Zofran) 4 mg PRN Q6HRS PRN 11/21/18 08:30 Prednisone (Prednisone) 40 mg DAILY 11/22/18 09:00 DIAGNOSTIC TESTING: BNP > 7000 hgb, cr stable. Trop negative ASSESSMENT: 1. NICM with decompensated HF 2. Afib, rate controlled 3. HTN PLAN: 1. Continue metoprolol, lisinopril, eliquis and lasix. Supportive care. Thanks. VALENTIN LOPEZ MD Nov 21, 2018 11:21
[2018-11-21] MEDS: CETIRIZINE HCL 10 MG TABLET. PO SCH (12:01)
[2018-11-21] MEDS: DOXYCYCLINE HYCLATE 100 MG TABLET PO SCH ×2 (12:01→20:48)
[2018-11-21] MEDS: IPRATRPIUM/ALBUTEROL 0.5/2.5MG 3 ML NEBU. NEB SCH ×3 (12:15→20:27)
[2018-11-21 13:11] LABS: INFLUENZA A PATIENT NEGATIVE (NEGATIVE); INFLUENZA B PATIENT NEGATIVE (NEGATIVE)
[2018-11-21] MEDS: LISINOPRIL 10 MG TABLET PO SCH (20:48)
[2018-11-22 03:40] VITALS: BP 119/72
[2018-11-22 07:00] VITALS: BP 120/71
[2018-11-22] MEDS: IPRATRPIUM/ALBUTEROL 0.5/2.5MG 3 ML NEBU. NEB SCH ×2 (07:56→11:32)
[2018-11-22] MEDS: ANTI-COAG MONITOR BY PHARMACY. MC PRN (08:47)
[2018-11-22] MEDS ORDERED: predniSONE 20 MG TABLET PO SCH (09:00)
[2018-11-22] MEDS ORDERED: LACTOBACILLUS RHAMNOSUS GG 1 CAPSULE. PO SCH (09:00)
[2018-11-22] MEDS ORDERED: FLUTICASONE 50MCG/NASAL SPRAY 16GM BOTTLE. NS SCH (09:00)
[2018-11-22] MEDS: DOXYCYCLINE HYCLATE 100 MG TABLET PO SCH (09:01)
[2018-11-22] MEDS: CETIRIZINE HCL 10 MG TABLET. PO SCH (09:02)
[2018-11-22] MEDS: APIXABAN 5 MG TABLET. PO SCH (09:02)
[2018-11-22] MEDS: METOPROLOL TART IMMED RELEASE 50 MG TABLET. PO SCH (09:02)
--- NOTE | 2018-11-22 10:43 | PDOC3 ---
Discharge Summary Visit Information Date of Admission: Nov 20, 2018 Date of Discharge: Nov 22, 2018 Admitting Diagnosis Comment: Cardiomyopathy, nonischemic, EF 35% recent echo CHF, Systolic Acute bronchitis, recently treated pneumonia-completed 10 day course Levaquin Ex-smoker quit many years ago Obesity BMI 32 Postnasal drip Sinusitis Brief Hospital Course Allergies Allergies Coded Allergies Type Severity Reaction Last Updated Verified No Known Drug Allergies 11/10/18 No Vital Signs Vital Signs Date Time Temp Pulse Resp B/P (MAP) Pulse Ox O2 Delivery O2 Flow Rate FiO2 11/22/18 09:02 106 120/71 11/22/18 07:57 96 Room Air 11/22/18 07:00 98.0 18 98.0 Lab Results Laboratory Tests Test 11/20/18 19:20 11/21/18 12:10 White Blood Count 7.1 x10^3/uL (4.0-11.0) Red Blood Count 4.39 x10^6/uL (3.50-5.40) Hemoglobin 13.0 g/dL (12.0-15.5) Hematocrit 40.2 % (36.0-47.0) Mean Corpuscular Volume 92 fL (79-100) Mean Corpuscular Hemoglobin 30 pg (25-35) Mean Corpuscular Hemoglobin Concent 32 g/dL (31-37) Red Cell Distribution Width 13.8 % (11.5-14.5) Platelet Count 315 x10^3/uL (140-400) Neutrophils (%) (Auto) 60 % (31-73) Lymphocytes (%) (Auto) 30 % (24-48) Monocytes (%) (Auto) 8 % (0-9) Eosinophils (%) (Auto) 1 % (0-3) Basophils (%) (Auto) 1 % (0-3) Neutrophils # (Auto) 4.3 x10^3uL (1.8-7.7) Lymphocytes # (Auto) 2.1 x10^3/uL (1.0-4.8) Monocytes # (Auto) 0.6 x10^3/uL (0.0-1.1) Eosinophils # (Auto) 0.1 x10^3/uL (0.0-0.7) Basophils # (Auto) 0.1 x10^3/uL (0.0-0.2) D-Dimer (Shelley) 0.49 ug/mlFEU (0.00-0.50) Sodium Level 144 mmol/L (136-145) Potassium Level 4.5 mmol/L (3.5-5.1) Chloride Level 106 mmol/L (98-107) Carbon Dioxide Level 28 mmol/L (21-32) Anion Gap 10 (6-14) Blood Urea Nitrogen 21 mg/dL (7-20) Creatinine 0.9 mg/dL (0.6-1.0) Estimated GFR (Cockcroft-Gault) 64.3 BUN/Creatinine Ratio 23 (6-20) Glucose Level 101 mg/dL (70-99) Calcium Level 9.0 mg/dL (8.5-10.1) Total Bilirubin 0.7 mg/dL (0.2-1.0) Aspartate Amino Transf (AST/SGOT) 31 U/L (15-37) Alanine Aminotransferase (ALT/SGPT) 43 U/L (14-59) Alkaline Phosphatase 88 U/L (46-116) Troponin I Quantitative 0.025 ng/mL (0.000-0.055) YU-Gbu-O-Type Natriuretic Peptide 7527 pg/mL (0-124) Total Protein 6.5 g/dL (6.4-8.2) Albumin 2.9 g/dL (3.4-5.0) Albumin/Globulin Ratio 0.8 (1.0-1.7) Influenza Type A Antigen Negative (NEGATIVE) Influenza Type B Antigen Negative (NEGATIVE) Laboratory Tests Test 11/21/18 12:10 Influenza Type A Antigen Negative (NEGATIVE) Influenza Type B Antigen Negative (NEGATIVE) Brief Hospital Course Ms. Dawkins is a 58 old white female who was recently diagnosed with A. fib and started on L Fritz and beta edinson by cardiology. She has cardio myopathy with EF 35% based on recent echo which was just last week. She comes in SOA CHF A. fib RVR fluid overload rather mild to moderate. Comanage with cardiology got diuresis. We will needing to up her beta edinson from 50 3 times a day to 100 twice a day-she does not have insurance hence she could not afford the XL She'll be discharged on Lasix for home today No PT needs She also had some sinusitis acute bronchitis symptoms, needed doxycycline and prednisone in house. She completed a course of Levaquin but still was feeling unwell, URI otherwise HOme today, on eliquis, elle inhib,.BB, lasix Dw [facility] DR Serrano Pt seen and examined dc 31 mins Discharge Information Condition at Discharge: Improved, Stable Follow Up: Weeks (cards 4 weeks maybe) Disposition/Orders: D/C to Home Scheduled Apixaban (Eliquis) 5 Mg Tablet, 5 MG PO BID for blood thinner, (Reported) Entered as Reported by: BRIA GONZALEZ RN on 11/20/182222 Last Action: Continued on 11/20/182246 by BRIA GONZALEZ RN Lisinopril (Lisinopril) 10 Mg Tablet, 10 MG PO DAILY for cardiomyopathy for 30 Days, #30 Prescribed by: RAZA BIRMINGHAM APRN on 11/11/18 1545 Last Action: Continued on 11/20/182246 by BRIA GONZALEZ RN Metoprolol Tartrate (Metoprolol Tartrate) 50 Mg Tablet, 1 TAB PO TID for blood pressure control, #60 Ref 5 (Reported) Entered as Reported by: BRIA GONZALEZ RN on 11/20/182222 Last Action: Continued on 11/20/182246 by BRIA GONZALEZ RN Ranitidine Hcl (Zantac) 150 Mg Tablet, 150 MG PO DAILY for GERD, (Reported) Entered as Reported by: HOA WALDEN on 11/10/18 175 Last Action: Converted on 11/20/182246 by BRIA GONZALEZ RN Scheduled PRN Albuterol Sulfate (Ventolin Hfa Inhaler) 18 Gm Hfa.aer.ad, 2 PUFF INH Q4HRS PRN for SHORTNESS OF BREATH, Ref 0 (Reported) Entered as Reported by: BRIA GONZALEZ RN on 11/20/182222 Last Action: Reviewed on 11/21/18831 by MIRA RUIZ MD Nov 22, 2018 10:43
[2018-11-22] MEDS ORDERED: DOXY100T PO (10:46)
[2018-11-22] MEDS ORDERED: METO50TA6 PO (10:46)
[2018-11-22] MEDS ORDERED: CETI10TA16 PO (10:46)
[2018-11-22] MEDS ORDERED: FLUT16SP NS (10:46)
[2018-11-22 11:00] VITALS: BP 124/96
[2018-11-22] MEDS ORDERED: FURO-68 PO (11:07)
--- NOTE | 2018-11-22 14:06 | EKG ---
[facility] [address] [place] [address] Test Date: 2018-11-20 Test Time: 19:10:11 Pat Name: GURPREET DUMAS Department: Room: 261 1 Gender: F Managed Care Liaison: : 1960 Requested By: RADHA AYALA Order Number: [id number] Reading MD: Prem Peter MD Measurements Intervals [place] Rate: 102 P: DC: QRS: 0 QRSD: 92 T: 26 QT: 384 QTc: 505 Interpretive Statements ATRIAL FIBRILLATION WITH CONTROLLED VENTRICULAR RESPONSE NON-SPECIFIC ST/T CHANGES Electronically Signed On 11-26-2018 14:02:32 CDT by Prem Peter MD
--- NOTE | 2018-11-22 14:52 | NUR ---
Discharge Note: MARIO ALBERTO DUMAS Discharge instructions and discharge home medications reviewed with Patient and a copy given. All questions have been answered and understanding verbalized. The following instructions and handouts were given: medications, follow up, check blood pressure, diet, CHF. Discontinued lines and drains: IV removed, no lines present. Patient discharged to home. ambulated to family members car.
[2018-11-22] MEDS ORDERED: METOPROLOL TART IMMED RELEASE 50 MG TABLET. PO SCH (21:00)
== END 2018-11-22 13:45 | disposition home or self-care (01) | DRG 308 ==
LOC: ER 17:36 → 2 SOUTH 21:02
PROVIDERS: ADMIT Family Medicine; ATTEND Family Medicine
DX: I48.91 Unspecified atrial fibrillation (principal); I50.23 Acute on chronic systolic (congestive) heart failure; I11.0 Hypertensive heart disease with heart failure; E66.9 Obesity, unspecified; I42.9 Cardiomyopathy, unspecified; J20.9 Acute bronchitis, unspecified; J06.9 Acute upper respiratory infection, unspecified; Z68.32 Body mass index [BMI] 32.0-32.9, adult; Z82.49 Family history of ischemic heart disease and other diseases of the circulatory system; Z87.442 Personal history of urinary calculi; Z87.891 Personal history of nicotine dependence; Z87.01 Personal history of pneumonia (recurrent); Z68.31 Body mass index [BMI] 31.0-31.9, adult
CPT/HCPCS: 36415; 71046; 80053; 83880; 84484; 85025; 85379; 87804; 93005; 94640; 94760; J1940; J7512; J7620; Q0163; 99285-25